=== PATIENT | male | born 2000 | race Caucasian/White ===

== ENCOUNTER 2025-01-01 10:22 | Emergency (ER) | payer OTHER, SELFPAY ==
--- NOTE | 2025-01-01 10:28 | XR_ITS ---
Examination: Foot, right, 3 views Technique: AP, oblique, lateral views foot, 3 views Date and time of exam: January 01, 2025 1030 hours INDICATIONS: Twisting injury to the foot yesterday, foot pain FINDINGS: Accessory navicular bone No acute fracture No foreign body IMPRESSION: No acute fracture
--- NOTE | 2025-01-01 10:28 | XR_ITS ---
EXAMINATION: Ankle, right 3 views . Technique: Ankle AP, oblique, lateral 3 views Date and time of exam: January 01, 2025 1030 hours INDICATIONS: Twisting injury to the foot and ankle today, ankle pain FINDINGS: No ankle fracture or dislocation No foreign body IMPRESSION: No ankle fracture
--- NOTE | 2025-01-01 10:29 | EDNOTE_ITS ---
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 and twisted his right foot patient reports injury to the right foot and ankle Limitations: no limitations Review of Systems Review of Systems Systems Reviewed: All systems reviewed, normal except as documented Constitutional Constitutional: Reports system reviewed and no additional complaints, except as documented, Denies fever(s) and Denies headache(s) Eyes Eyes: Reports system reviewed and no additional complaints, except as documented and Denies blurry vision ENT Ears, Nose, Mouth, and Throat: Reports system reviewed and no additional complaints, except as documented, Denies headache(s), Denies nasal congestion and Denies nasal discharge Cardiovascular Cardiovascular: Reports system reviewed and no additional complaints, except as documented, Denies chest pain and Denies dyspnea Respiratory Respiratory: Reports system reviewed and no additional complaints, except as documented, Denies chest congestion, Denies cough and Denies dyspnea Gastrointestinal Gastrointestinal: Reports system reviewed and no additional complaints, except as documented and Denies abdominal pain Musculoskeletal Musculoskeletal: Reports system reviewed and no additional complaints, except as documented and Reports joint swelling (Right foot pain) Integumentary/Breasts Skin/Breast: Reports system reviewed and no additional complaints, except as documented and Denies rash Neurologic Neurologic: Reports system reviewed and no additional complaints, except as documented, Reports as per HPI and Denies headache(s) Past Medical History Past Medical History NEUROLOGIC: Negative Neurological Disorders CARDIAC: Negative Cardiac Disorders Social History SMOKING STATUS: Never smoker ED Exam General Limitations: Present no limitations General appearance: Present alert and in no apparent distress Head Head exam: Present atraumatic, normocephalic and normal inspection Eye Eye exam: Present normal appearance, PERRL and EOMI ENT ENT exam: Present normal exam, normal oropharynx and mucous membranes moist Neck Neck exam: Present normal inspection, full ROM and trachea midline Chest Chest inspection: Present normal inspection and symmetric chest wall rise Respiratory Respiratory exam: Present normal lung sounds bilaterally Cardiovascular Cardiovascular exam: Present regular rate, normal rhythm and normal heart sounds Abdominal Exam Abdominal exam: Present soft and normal bowel sounds Extremities Exam Extremities exam: Present full ROM, tenderness, normal capillary refill, pedal edema and joint swelling; Absent calf tenderness Back Exam Back exam: Present normal inspection and full ROM Neurological Exam Neurological exam: Present alert, oriented X3 and CN II-XII intact Psychiatric Psychiatric exam: Present normal affect and normal mood Skin Skin exam: Present warm, dry, intact and normal color Course Quality Measures none Orders Category Date Time Status XR ankle comp RT min 3V Stat Exams 01/01/25 10:28 Completed XR foot comp RT min 3V Stat Exams 01/01/25 10:28 Completed Vital Signs Vital signs: Vital Signs Temperature 97.8 F 01/01/25 10:35 Pulse Rate 85 01/01/25 10:35 Respiratory Rate 18 01/01/25 10:35 Blood Pressure 144/89 H 01/01/25 10:35 Pulse Oximetry (%) 97 01/01/25 10:35 Oxygen Delivery Method Room Air 01/01/25 10:35 O2 saturation 98% r/a wnl Extremity Injury, Lower MDM Narrative MDM Narrative:: 24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 stating that he was doing 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 and twisted his right foot patient reports injury to the right foot and ankle On exam patient has tenderness of the right foot and right ankle patient is mild swelling dorsal aspect of the right foot X-ray of the right foot and right ankle obtained Workmen's Compensation papers completed Patient discharged home in no distress to follow-up with primary care doctor in the next 24 to 48 hours and for any worsening symptoms to return to the ER immediately Patient data External records reviewed:: [facility] previous records Clinical information provided by:: patient Social determinants that could affect healthcare access:: none Patient has the following chronic illnesses:: None How is presenting disease/condition affected by chronic disease/condition?: no chronic disease Evaluation data The following diagnostics were reviewed and interpreted by me:: radiology exam(s) Lab and/or radiology exams considered but not ordered:: Radiology obtain Interpretation Summary: Reviewed by me Medications / Prescriptions Medications or Prescriptions considered but not ordered:: Given Medication administrations:: Given Consultations Consultation(s) initiated? (list below): No Diagnosis Extremity Injury, Lower Differential Diagnosis: ankle sprain and strain and ankle fracture Most likely diagnosis given after review of the tests above:: Ankle sprain Admission Indicated Admission indicated?: not indicated Admission Request Was there a request for admission?: No Disposition Plan Disposition Plan: Discharge Discharge Attestation Discharge Attestation: The patient and all family members were given an opportunity to ask questions and understood the discharge instructions. Discharge instructions specifically effects, indications for sooner follow up or return to the emergency department, and the expected course of current diagnosis. Patient condition: Stable Discharge Plan Plan Patient Disposition: HOME (Self Care) Disposition Comment: Stable Prescriptions/Referrals Referrals: No Primary/Family,Physician [Primary Care Provider] - 01/03/25 Problem List Clinical Impression: Right foot sprain Patient/Caregiver Discharge Instructions Education Materials: ED Foot Sprain Additional Instructions: Please follow up with your Workmen's Compensation provider in the next 24-48hrs for any worsening symptoms return here immediately Print Language: Slovak Stand Alone Forms: Leonarda Award Info., Patient Portal Info Letter PA/RAHAT Supervising Physician LAUREN/RAHAT Supervising Physician: Dr khan
[2025-01-01 10:35] VITALS: BP 144/89; PULSE 85; RESP 18; TEMP 36.6; O2SAT 97; BMI 19.0
== END 2025-01-01 12:53 | disposition home or self-care (01) ==
PROVIDERS: Emergency Provider Emergency Medicine
DX: S93.601A Unspecified sprain of right foot, initial encounter (principal); X50.1XXA Overexertion from prolonged static or awkward postures, initial encounter
CPT/HCPCS: 73610; 73630; 99283